=== PATIENT | female | born 1950 | race Caucasian/White ===

== ENCOUNTER 2016-11-13 08:34 | Emergency (ER) | payer BC, OTHER ==
[2016-11-13] MEDS ORDERED: IPRATROPIUM/ALBUTEROL 3 ML DEYVIAL IH ONE (09:03)
--- NOTE | 2016-11-13 09:13 | UCPHY ---
H & P Time Seen by Provider: 11/13/16 08:54 Patient Type: New HPI/ROS: This patient reports cough wheeze and bronchitic burning pain with coughing over the past 3 days. She arrived here from [place] to visit family on Friday and had onset of symptoms that day. She has no albuterol inhaler without a spacer with her and has some relief of her symptoms from that in terms of the cough. No other exacerbating or alleviating factors. ROS: No fevers or chills. No significant fatigue. No chest pain between coughs. No pleuritic pain. No lightheadedness. No leg swelling. 7 point ROS is otherwise negative. Past Medical/Surgical History: Mild asthma. No emergency department visits in the last year for asthma. Smoking Status: Never smoked Physical Exam: Physical Exam Vital signs are normal. General: No acute distress HEENT: Nose: Clear discharge bilaterally. No sinus tenderness to percussion. Ears: External canals and tympanic membranes are clear with no erythema or abnormal findings bilaterally. Oropharynx: No erythema or exudates. No dysphonia. No drooling or stridor. Eyes: Pupils equal and react to light. Extraocular motions are intact. Lungs: Mild expiratory wheeze bilaterally. Mild rhonchi right-sided more than left. No rales. Cardiac: Regular rate and rhythm with no murmur gallop or rub Skin: No rash or pallor. Neuro: Alert with no focal deficits noted. Initial differential diagnosis: URI with asthma exacerbation, bronchitis with asthma Constitutional: Initial Vital Signs Temperature (C) 37.0 C 11/13/16 08:45 Heart Rate 87 11/13/16 08:45 Respiratory Rate 18 11/13/16 08:45 Blood Pressure 138/82 H 11/13/16 08:45 O2 Sat (%) 95 11/13/16 08:45 O2 Delivery Mode Room Air Allergies/Adverse Reactions: codeine Allergy (Verified 11/13/16 09:10) propoxyphene HCl [From Darvon] Allergy (Verified 11/13/16 09:10) valacyclovir HCl [From Valtrex] Allergy (Verified 11/13/16 09:10) bees Allergy (Uncoded 11/13/16 09:10) seafood Allergy (Uncoded 11/13/16 09:10) Home Medications: Medication Instructions Recorded Albuterol 5 mg/ml INH [Proventil] 100 mg IH 05/18/13 Albuterol Hfa Anes Only [Proair 2 puffs IH Q4 PRN #1 mdi 05/18/13 Hfa Icu (*)] Azithromycin [Zithromax] 250 mg PO DAILY #6 tab 05/18/13 Budesonide/Formoterol Fumarate gm IH 05/18/13 [Symbicort 80-4.5 Mcg Inhaler] THYROID mg PO 05/18/13 guaiFENesin [Mucinex 600 MG (OTC)] mg PO 05/18/13 predniSONE 40 mg PO DAILY #10 tab 05/18/13 Albuterol Hfa Anes Only [Proair 2 puffs IH Q4 PRN #1 mdi 11/13/16 Hfa Icu (*)] Azithromycin [Zithromax] 250 mg PO DAILY #6 tab 11/13/16 predniSONE 40 mg PO DAILY #10 tab 11/13/16 Albuterol Sulfate [ALBUTEROL 0.63 mg IH Q4 PRN #120 vial.neb 11/14/16 SULFATE] MDM/Departure - MDM Medications Given: Discontinued Medications Albuterol/Ipratropium (Duoneb) 3 ml IH EDNOW ONE Stop: 11/13/16 09:04 Last Admin: 11/13/16 09:14 Dose: 3 ml ED Course/Re-evaluation: DuoNeb with improvement-near resolution of wheeze and subjective improvement with decreased cough. No evidence of lower respiratory infection or other complicating factors. Patient responded well to treatment here - Depart Disposition: Home, Routine, Self-Care Clinical Impression: Asthmatic bronchitis with acute exacerbation Condition: Good Instructions: Asthma (ED), Acute Bronchitis (ED) Additional Instructions: Diagnosis: Asthmatic bronchitis Plan: Humidifier Albuterol inhaler with spacer for cough, wheeze or shortness of breath Prednisone if needed for increasing symptoms. If he develops fevers, start the Zithromax antibiotic in addition. Return for any significant worsening despite the treatment plan Prescriptions: Albuterol Hfa Anes Only [Proair Hfa Icu (*)] 2 puffs IH Q4 PRN #1 mdi PRN Reason: Wheezing Azithromycin [Zithromax] 250 mg PO DAILY #6 tab predniSONE 40 mg PO DAILY #10 tab Referrals: BENNETT QUARLES [Other] - As per Instructions - PQRS PQRS Measurement: 134: Depression screening and followup, PRIME MD-PHQ2 (12 years and older) Over the last 2 weeks, how often have you been bothered by any of the following problems? 1. Feeling down, depressed, or hopeless? 2. Little interest or pleasure in doing things? Patient answered no to both 1 and 2 130: Documentation of medications. Reviewed all patient medications, doses, route and frequency. 226: Do you smoke? [No.] 47: 65 and older: Advanced care planning. Patient designates surrogate decision maker as spouse 51: 18 years old and older with diagnosis of COPD, spirometry performance. NA 52: 18 years old and older with COPD and symptoms of COPD or FEV1<60% predicted prescribed a B Agonist. NA
[2016-11-13 09:45] VITALS: BP 138/82; PULSE 87; RESP 18; TEMP 98.6; O2SAT 95
== END 2016-11-13 09:30 | disposition home or self-care (01) ==
LOC: CED 08:34
DX: J45.901 Unspecified asthma with (acute) exacerbation (principal); Z88.5 Allergy status to narcotic agent
CPT/HCPCS: G0463-PO

== ENCOUNTER 2016-11-14 13:44 | Emergency (ER) | payer BC, OTHER ==
[2016-11-14 14:00] VITALS: BP 165/81; PULSE 99; RESP 20; TEMP 99; O2SAT 91
[2016-11-14] MEDS ORDERED: IPRATROPIUM/ALBUTEROL 3 ML DEYVIAL IH ONE (14:06)
--- NOTE | 2016-11-14 15:06 | UCPHY ---
H & P Time Seen by Provider: 11/14/16 13:49 Patient Type: Established HPI/ROS: 66-year-old female with a history of reactive airway disease seen here yesterday and treated for reactive airway disease with bronchitis sent home with azithromycin and prednisone taper. She returns today requesting a and no other breathing treatment and a nebulizer for home. Review of systems General no fever no chills no weakness HEENT no eye pain no eye discharge. No eye redness, no sore throat Respiratory positive productive cough, positive wheezing, no shortness of breath Cardiac no chest pain, no peripheral edema GI no abdominal pain, no diarrhea, no constipation, no nausea, no vomiting no flank pain, no hematuria, no dysuria Musculoskeletal no myalgias, no joint pain Heme no easy bruising, no easy bleeding Endo no polyuria, no polydipsia Skin no rashes, no pruritus Neuro no syncope, no dizziness, no headaches Psych is no suicidal ideation, no homicidal ideation Social History: Denies alcohol drugs or smoking Smoking Status: Never smoked Physical Exam: 66-year-old female Alert and oriented nontoxic appearance, no acute distress afebrile Atraumatic normocephalic Extraocular muscles intact, anicteric Nares mild yellowish discharge Oropharynx mild erythema no tonsillar swelling no exudate no uvular deviation, tolerating own secretions Neck supple no lymphadenopathy Lungs clear to auscultation bilaterally Heart regular rate and rhythm Abdomen normoactive bowel sounds soft nontender Extremities no cyanosis clubbing or edema Skin no rash Constitutional: Initial Vital Signs Temperature (C) 37.2 C 11/14/16 13:58 Heart Rate 99 11/14/16 13:58 Respiratory Rate 20 11/14/16 13:58 Blood Pressure 165/81 H 11/14/16 13:58 O2 Sat (%) 91 L 11/14/16 13:58 O2 Delivery Mode Room Air Allergies/Adverse Reactions: codeine Allergy (Verified 11/13/16 09:10) propoxyphene HCl [From Darvon] Allergy (Verified 11/13/16 09:10) valacyclovir HCl [From Valtrex] Allergy (Verified 11/13/16 09:10) bees Allergy (Uncoded 11/13/16 09:10) seafood Allergy (Uncoded 11/13/16 09:10) Home Medications: Medication Instructions Recorded Albuterol 5 mg/ml INH [Proventil] 100 mg IH 05/18/13 Albuterol Hfa Anes Only [Proair 2 puffs IH Q4 PRN #1 mdi 05/18/13 Hfa Icu (*)] Azithromycin [Zithromax] 250 mg PO DAILY #6 tab 05/18/13 Budesonide/Formoterol Fumarate gm IH 05/18/13 [Symbicort 80-4.5 Mcg Inhaler] THYROID mg PO 05/18/13 guaiFENesin [Mucinex 600 MG (OTC)] mg PO 05/18/13 predniSONE 40 mg PO DAILY #10 tab 05/18/13 Albuterol Hfa Anes Only [Proair 2 puffs IH Q4 PRN #1 mdi 11/13/16 Hfa Icu (*)] Azithromycin [Zithromax] 250 mg PO DAILY #6 tab 11/13/16 predniSONE 40 mg PO DAILY #10 tab 11/13/16 Albuterol Sulfate [ALBUTEROL 0.63 mg IH Q4 PRN #120 vial.neb 11/14/16 SULFATE] Medical Decision Making ED Course/Re-evaluation: Patient seen and evaluated for bronchitis, needing a nebulizer treatment Chest x-ray Negative for infiltrate Impression Bronchitis, reactive airway disease Plan Given Rx for nebulizer for home Given Rx for albuterol nebules - Data Points Medications Given: Discontinued Medications Albuterol/Ipratropium (Duoneb) 3 ml IH EDNOW ONE Stop: 11/14/16 14:07 Last Admin: 11/14/16 14:14 Dose: 3 ml Departure - Departure Disposition: Home, Routine, Self-Care Clinical Impression: Bronchitis Condition: Good Instructions: Acute Bronchitis (ED), Bronchospasm (ED) Referrals: OUT OF,STATE [Other] - As per Instructions Prescriptions: Albuterol Sulfate [ALBUTEROL SULFATE] 0.63 mg IH Q4 PRN #120 vial.neb PRN Reason: Wheezing - PQRS PQRS Measurement: 134: Depression screening and followup, PRIME MD-PHQ2 (12 years and older) Over the last 2 weeks, how often have you been bothered by any of the following problems? 1. Feeling down, depressed, or hopeless? 2. Little interest or pleasure in doing things? Patient answered no to both 1 and 2 130: Documentation of medications. Reviewed all patient medications, doses, route and frequency. 226: Do you smoke? No. 47: 65 and older: Advanced care planning. Patient designates surrogate decision maker as spouse.. [Patient has advanced directive.] 51: 18 years old and older with diagnosis of COPD, spirometry performance. [Patient has no history of COPD 52: 18 years old and older with COPD and symptoms of COPD or FEV1<60% predicted prescribed a B Agonist. [Spirometry not performed; equipment not available.]
== END 2016-11-14 15:32 | disposition home or self-care (01) ==
LOC: CED 13:44
DX: J40 Bronchitis, not specified as acute or chronic (principal)
CPT/HCPCS: 71020-PO; 99214-PO; G0463-PO

== ENCOUNTER 2016-11-16 08:25 | Emergency (ER) | payer BC, OTHER ==
[2016-11-16 08:43] VITALS: BP 137/92; PULSE 80; RESP 16; TEMP 98.4; O2SAT 92
--- NOTE | 2016-11-16 09:22 | UCPHY ---
H & P Time Seen by Provider: 11/16/16 09:04 Patient Type: Established HPI/ROS: This patient presents with the chief complaint of persistent cough. She has been ill for 6 days and was seen here on the and a and noted to have bronchitis with bronchospasm and was treated with bronchodilators and also prednisone. In addition she was given a Z-Jose Armando which she feels is not been helpful. A chest x-ray was obtained on the and is normal. She feels that she is having difficulty coughing up sputum and on occasion she has noticed some blood-tinged sputum. Early on she thinks she had a fever but this is resolved. She denies sore throat and nasal congestion. + REVIEW OF SYSTEMS: Constitutional: Currently no fever mild fatigue Eyes: No complaints ENT: Denies sore throat, ear pain, nasal congestion at this time. Respiratory: Cough, wheezing, difficulty producing sputum Cardiac: Denies chest pain Gastrointestinal: Not addressed Genitourinary: Not addressed Musculoskeletal: Back pain this morning on awakening which has improved. Skin: No rash Neurological: Not addressed Smoking Status: Never smoked Physical Exam: GENERAL: Well-appearing, well-nourished and in no acute distress. HEAD: Atraumatic, normocephalic. EYES: sclera anicteric, conjunctiva are normal. ENT: nares patent, oropharynx clear without exudates. Moist mucous membranes. NECK: Normal range of motion, supple without lymphadenopathy or JVD. LUNGS: There is prolongation of the expiratory phase of respiration and occasional wheezing but these are quite mild. No rales or rhonchi appreciated. There is no respiratory distress. HEART: Regular rate and rhythm EXTREMITIES: Normal range of motion, NEUROLOGICAL: Cranial nerves II through XII grossly intact. Normal speech, normal gait. PSYCH: Normal mood, normal affect. SKIN: Warm, dry, normal turgor, no visible rashes or lesions. Constitutional: Initial Vital Signs Temperature (C) 36.9 C 11/16/16 08:37 Heart Rate 80 11/16/16 08:37 Respiratory Rate 16 11/16/16 08:37 Blood Pressure 137/92 H 11/16/16 08:37 O2 Sat (%) 92 11/16/16 08:37 O2 Delivery Mode Room Air Allergies/Adverse Reactions: codeine Allergy (Verified 11/13/16 09:10) propoxyphene HCl [From Darvon] Allergy (Verified 11/13/16 09:10) valacyclovir HCl [From Valtrex] Allergy (Verified 11/13/16 09:10) bees Allergy (Uncoded 11/13/16 09:10) seafood Allergy (Uncoded 11/13/16 09:10) Home Medications: Medication Instructions Recorded Albuterol 5 mg/ml INH [Proventil] 100 mg IH 05/18/13 Albuterol Hfa Anes Only [Proair 2 puffs IH Q4 PRN #1 mdi 05/18/13 Hfa Icu (*)] Azithromycin [Zithromax] 250 mg PO DAILY #6 tab 05/18/13 Budesonide/Formoterol Fumarate gm IH 05/18/13 [Symbicort 80-4.5 Mcg Inhaler] THYROID mg PO 05/18/13 guaiFENesin [Mucinex 600 MG (OTC)] mg PO 05/18/13 predniSONE 40 mg PO DAILY #10 tab 05/18/13 Albuterol Hfa Anes Only [Proair 2 puffs IH Q4 PRN #1 mdi 11/13/16 Hfa Icu (*)] Azithromycin [Zithromax] 250 mg PO DAILY #6 tab 11/13/16 predniSONE 40 mg PO DAILY #10 tab 11/13/16 Albuterol Sulfate [ALBUTEROL 0.63 mg IH Q4 PRN #120 vial.neb 11/14/16 SULFATE] Medical Decision Making Differential Diagnosis: I believe that this patient's symptoms are related to a viral illness and that antibiotics are not indicated. The patient did request Levaquin but I do not feel that this would be helpful and potentially harmful. It seems that her bronchospasm has improved significantly since her initial visit. I did not feel that she needed a nebulizer treatment. Departure - Departure Disposition: Home, Routine, Self-Care Clinical Impression: Acute bronchitis with bronchospasm Condition: Good Instructions: Acute Bronchitis (ED), Bronchospasm (ED) Additional Instructions: If your symptoms have not improved in 4 or 5 days you should be re-evaluated. Continue to use your albuterol and prednisone as previously prescribed. Activity as tolerated. Diet as tolerated. Adult Pain & Fever Control: We recommend Acetaminophen (Tylenol) and Ibuprofen (Motrin, Advil) for pain and fever control. When fever is high or pain severe, both drugs can be used at the same time, but at different intervals. Please note the time differences. Your dose is: Acetaminophen [650]mg every 4 to 6 hours ibuprofen [600]mg every [6] hours with food OR naproxen Sodium (Aleve) [440]mg every 12 hours. Note: do not take Acetaminophen with Hydrocodone (Vicodin, Lortab) or Oxycodone (Percocet). These medications also contain Acetaminophen. No more than 3000 mg of Acetaminophen should be taken in 24 hours (for an adult) . The maximal dose of ibuprofen that it is safe in a 24-hour period is 2400 mg. You may take 400 mg every 4 hours, 600 mg every 6 hours or 800 mg every 8 hours safely. - PQRS PQRS Measurement: Not applicable
== END 2016-11-16 09:30 | disposition home or self-care (01) ==
LOC: CED 08:25
DX: J20.9 Acute bronchitis, unspecified (principal)
CPT/HCPCS: 99214-PO; G0463-PO